=== PATIENT | female | born 1990 | race African-American/Black ===

== ENCOUNTER 2017-07-28 02:53 | Emergency (ER) | payer SELFPAY ==
[~2017-07-28] VITALS: Ht 152.4 cm; Wt 59.0 kg
[2017-07-28 02:53] VITALS: BP_SYST 115
[2017-07-28 03:12] VITALS: BP_SYST 115
== END 2017-07-28 03:12 ==
LOC: SED 02:53
DX: Z13.0 Encounter for screening for diseases of the blood and blood-forming organs and certain disorders involving the immune mechanism (principal); Z86.2 Personal history of diseases of the blood and blood-forming organs and certain disorders involving the immune mechanism; Z91.018 Allergy to other foods
CPT/HCPCS: 99283